=== PATIENT | male | born 1930 | race Hispanic/Latino ===

== ENCOUNTER 2017-02-16 14:47 | Inpatient (IN) | payer OTHER, BC ==
[2017-02-16 15:35] VITALS: BMI 33.5
[2017-02-16] MEDS ORDERED: Ergocalciferol 50,000 Intl Units Cap PO SCH (16:00)
[2017-02-16] MEDS: Tiotropium 18 mcg Cap For Inhalation INH SCH (17:25)
[2017-02-16] MEDS ORDERED: Insulin Regular 100 units/ml SC SCH (22:00)
--- NOTE | 2017-02-17 01:12 | CON ---
DATE: ENDOCRINOLOGY CONSULT LOCATION: Room 709, [facility]. HISTORY OF PRESENT ILLNESS: This is an 86-year-old male with a recent admission for congestive heart failure and exacerbation of COPD, now being referred for endocrine evaluation and management. He has known history of hypothyroidism, currently on levothyroxine at 175 mcg daily. 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 Also history of recent admission for congestive heart failure with elevated proBNP levels as noted, history of hypothyroidism and has been controlled on levothyroxine at 175 mcg daily, history of hypertensive cardiovascular disease and dyslipidemia, history of chronic morbid obesity, history of type 2 diabetes, but is not on any kind of hypoglycemic therapy at this time, history of diabetic retinopathy, polyneuropathy and nephropathy as noted, underlying chronic kidney disease. His latest hemoglobin A1c was 6.6%. FAMILY HISTORY: Positive for diabetes and hypertension. SOCIAL HISTORY: The patient has a supportive family; has prior history of nicotine dependence but quit some years ago. REVIEW OF SYSTEMS: Admits to generalized body weakness with easy fatigability and tiredness and suboptimal energy level. Also admits to dizziness and lightheadedness, worse on the day of admission, also admits to precordial chest pain with progressive shortness of breath, initially on exertion and then at rest, with paroxysmal nocturnal dyspnea. His oral intake is variable with occasional dyspepsia and habitual constipation. He also admits to occasional nocturia. PHYSICAL EXAMINATION GENERAL: He is an obese male in no apparent distress. VITAL SIGNS: Blood pressure of 140/80, pulse of 70 beats per minute regular, temperature 99, respirations 20, height is 5 feet 10 inches, weight is 234 pounds. HEENT: Head normocephalic. Eyes anicteric with pink conjunctivae. Funduscopy was not possible at this time. Ears, nose and throat otherwise normal. NECK: Supple. Thyroid gland is normal in size. No carotid bruits or any cervical adenopathy. CARDIOPULMONARY: Adynamic precordium. S1, S2 is rapid and regular. LUNGS: Clear to auscultation. ABDOMEN: Obese, soft with positive bowel sounds. EXTREMITIES: No peripheral edema. Pulses are +2 bilaterally. LABORATORY DATA: His chemistries showed a BUN of 37, sodium 140, potassium 4.1, chloride 104, CO2 31, glucose 123 and creatinine 2.1. His hemoglobin A1c is 6.6%. The proBNP was 15,500. TSH done was 2.17. ASSESSMENT: This is an 86-year-old male with a known history of type 2 diabetes, previously on steroid therapy with expected hyperglycemic accelerations and is now being followed closely for metabolic management and has now been referred for diabetic and thyroid evaluation as noted. He has significant history of recent congestive heart failure with exacerbation of chronic obstructive pulmonary disease as noted. He also has diabetic microvascular complications of retinopathy, polyneuropathy and nephropathy with underlying chronic kidney disease. PLAN: Plan of management was discussed with the patient and staff. We will order a low-dose correction scale using Humalog insulin as ordered. We will observe his glycemic fluctuations and depending on his glycemic accelerations, we will start him on the low-dose oral hypoglycemic therapy and/or of a combination of basal insulin with oral hypoglycemic drug therapy as indicated. We will obtain thyroid function studies and adjust his levothyroxine dose accordingly. We will obtain serial chemistries and supplement accordingly needed. Lenore Dennis MD
[2017-02-17 06:05] LABS: HEMATOCRIT 34.7 % (35.0-51.0); MEAN CELL VOLUME 87.4 fl (80.0-94.0); MEAN CORPUSCULAR HEMOGLOBIN 27.6 pg (27.0-31.0); MEAN CORPUSCULAR HGB CONC 31.6 g/dL (33.0-37.0); RED CELL DISTRIBUTION WIDTH 15.8 % (11.5-14.5)
[2017-02-17] MEDS ORDERED: Levothyroxine 175 MCG TAB PO SCH (06:30)
[2017-02-17] MEDS: Insulin Regular 100 units/ml SC SCH ×4 (06:33→21:56)
[2017-02-17 06:44] LABS: BILIRUBIN,TOTAL 0.9 mg/dl (0.2-1.3); CALCIUM 7.8 mg/dL (8.4-10.2); POTASSIUM 4.8 MMOL/L (3.6-5.0); TOTAL PROTEIN 6.1 G/DL (6.3-8.2)
[2017-02-17 06:47] LABS: T4 9.82 ug/dl (5.5-11.0)
[2017-02-17 07:00] LABS: THYROID STIMULATING HORMONE 0.86 mIU/ML (0.46-4.68)
--- NOTE | 2017-02-17 07:10 | CP.PCM.HP ---
History of Present Illness - History of Present Illness History of Present Illness: Patient presented in ER with SOB, dyspenea, elevation of D-Dimer, edema, possible pneumonia (abnormal CXR), severe COPD requiring constant administration of O2, renal failure, DM1, DM nephropathy, depression, no compliance with meds. He looks acute and chronically ill, Severe debility. Patient transfer to snf to continue present rx and adjust meds and PT. Present on Admission - Present on Admission Any Indicators Present on Admission: No Review of Systems - Constitutional Constitutional: As Per HPI - EENT Eyes: As Per HPI - Cardiovascular Cardiovascular: As Per HPI - Respiratory Respiratory: As Per HPI - Gastrointestinal Gastrointestinal: As Per HPI - Musculoskeletal Musculoskeletal: As Per HPI - Integumentary Integumentary: As Per HPI - Neurological Neurological: As Per HPI - Psychiatric Psychiatric: As Per HPI Past Patient History - Infectious Disease Hx of Infectious Diseases: None - Past Medical History & Family History Past Medical History?: Yes - Past Social History Smoking Status: Former Smoker - CARDIAC Hx Congestive Heart Failure: Yes Hx Hypercholesterolemia: Yes Hx Hypertension: Yes - PULMONARY Hx Chronic Obstructive Pulmonary Disease (COPD): No - NEUROLOGICAL Hx Neurological Disorder: No HX Cerebrovascular Accident: No - HEENT Hx HEENT Problems: Yes Hx Deafness: Yes - RENAL Hx Chronic Kidney Disease: Yes Hx Kidney Stones: Yes - ENDOCRINE/METABOLIC Hx Hypothyroidism: Yes - HEMATOLOGICAL/ONCOLOGICAL Hx AIDS: No Hx Anemia: Yes Hx Human Immunodeficiency Virus (HIV): No - INTEGUMENTARY Hx Dermatological Problems: No - MUSCULOSKELETAL/RHEUMATOLOGICAL Hx Arthritis: Yes Hx Falls: Yes (15 yrs ago left leg surgery) - GASTROINTESTINAL Hx Gastrointestinal Disorders: No - GENITOURINARY/GYNECOLOGICAL Hx Genitourinary Disorders: No - PSYCHIATRIC Hx Anxiety: Yes Hx Depression: Yes Hx Substance Use: No - SURGICAL HISTORY Hx Cholecystectomy: Yes Hx Coronary Artery Bypass Graft: Yes Hx Coronary Stent: Yes (X2) - ANESTHESIA Hx Anesthesia: Yes Hx Anesthesia Reactions: No Hx Malignant Hyperthermia: No Meds Allergies/Adverse Reactions: Allergies Allergy/AdvReac Type Severity Reaction Status Date / Time atorvastatin AdvReac DIZZINESS Verified 02/16/17 15:27 Penicillins AdvReac RASH Verified 02/16/17 15:27 Physical Exam - Constitutional Appears: Non-toxic - Head Exam Head Exam: ATRAUMATIC, NORMAL INSPECTION, NORMOCEPHALIC - ENT Exam ENT Exam: Mucous Membranes Dry - Neck Exam Neck exam: Positive for: Full Rom - Respiratory Exam Respiratory Exam: Decreased Breath Sounds, Prolonged Expiratory Phase - Cardiovascular Exam Cardiovascular Exam: REGULAR RHYTHM, +S1, +S2 - GI/Abdominal Exam GI & Abdominal Exam: Normal Bowel Sounds, Soft - Neurological Exam Neurological exam: Alert, CN II-XII Intact, Oriented x3 - Psychiatric Exam Psychiatric exam: Normal Mood - Skin Skin Exam: Dry Results - Vital Signs Recent Vital Signs: Last Vital Signs Temp 98.6 F 02/16/17 21:56 Pulse 62 02/16/17 21:56 Resp 20 02/16/17 21:56 BP 131/55 L 02/16/17 21:56 Pulse Ox 100 02/16/17 21:56 - Labs Result Diagrams: 02/17/17 05:45 02/17/17 05:45 Labs: Laboratory Results - last 24 hr 02/16/17 02/16/17 02/17/17 16:10 20:27 05:45 WBC 7.0 D RBC 3.97 L Hgb 11.0 L Hct 34.7 L MCV 87.4 D MCH 27.6 MCHC 31.6 L RDW 15.8 H Plt Count 105 L D Sodium Potassium Chloride Carbon Dioxide Anion Gap BUN Creatinine Est GFR ( Amer) Est GFR (Non-Af Amer) POC Glucose (mg/dL) 106 134 H Random Glucose Calcium Total Bilirubin AST ALT Alkaline Phosphatase NT-Pro-B Natriuret Pep Total Protein Albumin Globulin Albumin/Globulin Ratio Free T4 Thyroxine (T4) TSH 3rd Generation 02/17/17 02/17/17 02/17/17 05:45 05:45 05:45 WBC RBC Hgb Hct MCV MCH MCHC RDW Plt Count Sodium 141 Potassium 4.8 Chloride 106 Carbon Dioxide 28 Anion Gap 12 BUN 36 H Creatinine 2.4 H Est GFR ( Amer) 31 Est GFR (Non-Af Amer) 26 POC Glucose (mg/dL) Random Glucose 130 H Calcium 7.8 L Total Bilirubin 0.9 AST 20 ALT 32 Alkaline Phosphatase 73 NT-Pro-B Natriuret Pep 29624 H Total Protein 6.1 L Albumin 3.0 L D Globulin 3.1 Albumin/Globulin Ratio 1.0 Free T4 1.63 Thyroxine (T4) 9.82 TSH 3rd Generation 0.86 02/17/17 05:47 WBC RBC Hgb Hct MCV MCH MCHC RDW Plt Count Sodium Potassium Chloride Carbon Dioxide Anion Gap BUN Creatinine Est GFR ( Amer) Est GFR (Non-Af Amer) POC Glucose (mg/dL) 140 H Random Glucose Calcium Total Bilirubin AST ALT Alkaline Phosphatase NT-Pro-B Natriuret Pep Total Protein Albumin Globulin Albumin/Globulin Ratio Free T4 Thyroxine (T4) TSH 3rd Generation Assessment & Plan (1) CHF (congestive heart failure), NYHA class III Status: Chronic (2) Dyspnea Status: Chronic (3) Leg edema, right Status: Chronic (4) Muscular deconditioning Status: Chronic (5) Physical deconditioning Status: Chronic (6) Aortic aneurysm Status: Chronic (7) Coronary artery disease Status: Chronic (8) Debility Status: Chronic (9) Depression Status: Chronic (10) Diabetes 1.5, managed as type 2 Status: Chronic (11) Hypothyroidism Status: Chronic (12) 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
[2017-02-17] MEDS ORDERED: Enoxaparin 30 mg Syringe SC SCH (09:00)
[2017-02-17] MEDS ORDERED: Patient's Own Med (Moxifloxacin Iv 400mg/250ml Ns [Avelox Iv 400mg/250ml Ns] 400 MG) IV SCH (09:00)
[2017-02-17] MEDS: Metoprolol Succinate 50 mg XL Tab PO SCH (09:25)
[2017-02-17] MEDS: Potassium Chloride 20 mEq ER Tab PO SCH (09:25)
[2017-02-17] MEDS: Enoxaparin 30 mg Syringe SC SCH (09:29)
--- NOTE | 2017-02-17 16:20 | CP.PCM.CON ---
History of Present Illness - History of Present Illness History of Present Illness: Consultation for evaluation and treatment : hx of CHF / CAD / AAA HPI: Past Patient History - Infectious Disease Hx of Infectious Diseases: None - Past Medical History & Family History Past Medical History?: Yes - Past Social History Smoking Status: Former Smoker - CARDIAC Hx Cardiac Disorders: Yes Hx Congestive Heart Failure: Yes Hx Hypercholesterolemia: Yes Hx Hypertension: Yes - PULMONARY Hx Chronic Obstructive Pulmonary Disease (COPD): No - NEUROLOGICAL Hx Neurological Disorder: No HX Cerebrovascular Accident: No - HEENT Hx HEENT Problems: Yes Hx Deafness: Yes - RENAL Hx Chronic Kidney Disease: Yes Hx Kidney Stones: Yes - ENDOCRINE/METABOLIC Hx Diabetes Mellitus Type 2: Yes - HEMATOLOGICAL/ONCOLOGICAL Hx AIDS: No Hx Anemia: Yes Hx Human Immunodeficiency Virus (HIV): No - INTEGUMENTARY Hx Dermatological Problems: No - MUSCULOSKELETAL/RHEUMATOLOGICAL Hx Arthritis: Yes Hx Falls: Yes (15 yrs ago left leg surgery) - GASTROINTESTINAL Hx Gastrointestinal Disorders: No - GENITOURINARY/GYNECOLOGICAL Hx Genitourinary Disorders: No - PSYCHIATRIC Hx Anxiety: Yes Hx Depression: Yes Hx Substance Use: No - SURGICAL HISTORY Hx Cholecystectomy: Yes Hx Coronary Artery Bypass Graft: Yes Hx Coronary Stent: Yes (X2) - ANESTHESIA Hx Anesthesia: Yes Hx Anesthesia Reactions: No Hx Malignant Hyperthermia: No Meds Allergies/Adverse Reactions: Allergies Allergy/AdvReac Type Severity Reaction Status Date / Time atorvastatin AdvReac DIZZINESS Verified 02/16/17 15:27 Penicillins AdvReac RASH Verified 02/16/17 15:27 - Medications Medications: Current Medications Aspirin (Ecotrin) 81 mg PO DAILY [facility] Last Admin: 02/17/17 09:25 Dose: 81 mg Atorvastatin Calcium (Lipitor) 20 mg PO HS [facility] Last Admin: 02/16/17 21:41 Dose: 20 mg Docusate Sodium (Colace) 100 mg PO BID [facility] Enoxaparin Sodium (Lovenox) 30 mg SC DAILY [facility] PRN Reason: Protocol Last Admin: 02/17/17 09:29 Dose: 30 mg Ergocalciferol (Drisdol 50,000 Intl Units Cap) 1 cap PO QWK [facility] Escitalopram Oxalate (Lexapro) 10 mg PO DAILY [facility] Last Admin: 02/17/17 09:24 Dose: 10 mg Folic Acid (Folic Acid) 1 mg PO DAILY [facility] Last Admin: 02/17/17 09:25 Dose: 1 mg Furosemide (Lasix) 20 mg IVP DAILY [facility] Last Admin: 02/17/17 09:26 Dose: 20 mg Insulin Human Regular (Humulin R) 0 units SC [facility] PRN Reason: Protocol Last Admin: 02/17/17 12:04 Dose: Not Given Levothyroxine Sodium (Synthroid) 175 mcg PO DAILY@0630 [facility] Last Admin: 02/17/17 06:10 Dose: 175 mcg Lisinopril (Zestril) 5 mg PO DAILY [facility] Last Admin: 02/17/17 09:25 Dose: 5 mg Metoprolol Succinate (Toprol Xl) 50 mg PO DAILY [facility] Last Admin: 02/17/17 09:25 Dose: 50 mg Moxifloxacin HCl (Avelox) 400 mg PO DAILY [facility] Last Admin: 02/17/17 09:25 Dose: 400 mg Mupirocin (Bactroban Ointment) 1 applic TOP Q12 [facility] Last Admin: 02/17/17 09:26 Dose: 1 applic Potassium Chloride (K-Dur 20 Meq Er Tab) 20 meq PO DAILY [facility] Last Admin: 02/17/17 09:25 Dose: 20 meq Spironolactone (Aldactone) 25 mg PO DAILY [facility] Last Admin: 02/17/17 09:25 Dose: 25 mg Tiotropium Alta (Spiriva) 18 mcg INH DAILY@1600 [facility] Last Admin: 02/16/17 17:25 Dose: Not Given Results - Vital Signs Recent Vital Signs: Last Vital Signs Temp 97.2 F L 02/17/17 16:12 Pulse 97 H 02/17/17 16:12 Resp 20 02/17/17 16:12 BP 106/57 L 02/17/17 16:12 Pulse Ox 100 02/17/17 16:12 - Labs Result Diagrams: 02/17/17 05:45 02/17/17 05:45 Labs: Laboratory Results - last 24 hr 02/16/17 02/16/17 02/17/17 16:10 20:27 05:45 WBC 7.0 D RBC 3.97 L Hgb 11.0 L Hct 34.7 L MCV 87.4 D MCH 27.6 MCHC 31.6 L RDW 15.8 H Plt Count 105 L D Sodium Potassium Chloride Carbon Dioxide Anion Gap BUN Creatinine Est GFR ( Amer) Est GFR (Non-Af Amer) POC Glucose (mg/dL) 106 134 H Random Glucose Hemoglobin A1c Calcium Total Bilirubin AST ALT Alkaline Phosphatase NT-Pro-B Natriuret Pep Total Protein Albumin Globulin Albumin/Globulin Ratio Free T4 Thyroxine (T4) TSH 3rd Generation 02/17/17 02/17/17 02/17/17 05:45 05:45 05:45 WBC RBC Hgb Hct MCV MCH MCHC RDW Plt Count Sodium 141 Potassium 4.8 Chloride 106 Carbon Dioxide 28 Anion Gap 12 BUN 36 H Creatinine 2.4 H Est GFR ( Amer) 31 Est GFR (Non-Af Amer) 26 POC Glucose (mg/dL) Random Glucose 130 H Hemoglobin A1c 6.8 H Calcium 7.8 L Total Bilirubin 0.9 AST 20 ALT 32 Alkaline Phosphatase 73 NT-Pro-B Natriuret Pep Total Protein 6.1 L Albumin 3.0 L D Globulin 3.1 Albumin/Globulin Ratio 1.0 Free T4 1.63 Thyroxine (T4) 9.82 TSH 3rd Generation 0.86 02/17/17 02/17/17 02/17/17 05:45 05:47 10:59 WBC RBC Hgb Hct MCV MCH MCHC RDW Plt Count Sodium Potassium Chloride Carbon Dioxide Anion Gap BUN Creatinine Est GFR ( Amer) Est GFR (Non-Af Amer) POC Glucose (mg/dL) 140 H 227 H Random Glucose Hemoglobin A1c Calcium Total Bilirubin AST ALT Alkaline Phosphatase NT-Pro-B Natriuret Pep 85647 H Total Protein Albumin Globulin Albumin/Globulin Ratio Free T4 Thyroxine (T4) TSH 3rd Generation 02/17/17 15:54 WBC RBC Hgb Hct MCV MCH MCHC RDW Plt Count Sodium Potassium Chloride Carbon Dioxide Anion Gap BUN Creatinine Est GFR ( Amer) Est GFR (Non-Af Amer) POC Glucose (mg/dL) 138 H Random Glucose Hemoglobin A1c Calcium Total Bilirubin AST ALT Alkaline Phosphatase NT-Pro-B Natriuret Pep Total Protein Albumin Globulin Albumin/Globulin Ratio Free T4 Thyroxine (T4) TSH 3rd Generation Assessment & Plan (1) CHF (congestive heart failure) Status: Acute (2) Elevated d-dimer Status: Acute
[2017-02-17] MEDS: Tiotropium 18 mcg Cap For Inhalation INH SCH (16:54)
--- NOTE | 2017-02-17 18:20 | CARD ---
APPROVED REPORT EKG Measurement Heart [id number] <Conclusion> Atrial-sensed ventricular-paced rhythm Abnormal ECG
--- NOTE | 2017-02-17 21:52 | CP.PCM.CON ---
History of Present Illness - History of Present Illness History of Present Illness: REASONS FOR CONSULT : CKD STAGE 3 CPMPLICATIONS OF CKD STAGE 3 PT IS WELL KNOWN TO ME FROM PREVIOUS ADMISSIONS WELL FROM OFFICE VISITS PT HAS MULTIPLE MEDICAL PROBLEMS AND FREQUENT ADMISSIONS WAS ADMITTED FOR EXACERBATION OF COPD / PNEUMONIA .. WELL CHF ALL PREVIOUS EMR REVIEWED .. LABS AND MEDS WERE ALL REVIEWED Patient presented in ER with SOB, dyspenea, elevation of D-Dimer, edema, possible pneumonia (abnormal CXR), severe COPD requiring constant administration of O2, renal failure, DM1, DM nephropathy, depression, no compliance with meds. He looks acute and chronically ill, Severe debility. Patient transfer to snf to continue present rx and adjust meds and PT. Past Patient History - Infectious Disease Hx of Infectious Diseases: None - Past Medical History & Family History Past Medical History?: Yes - Past Social History Smoking Status: Former Smoker - CARDIAC Hx Cardiac Disorders: Yes Hx Congestive Heart Failure: Yes Hx Hypercholesterolemia: Yes Hx Hypertension: Yes - PULMONARY Hx Chronic Obstructive Pulmonary Disease (COPD): No - NEUROLOGICAL Hx Neurological Disorder: No HX Cerebrovascular Accident: No - HEENT Hx HEENT Problems: Yes Hx Deafness: Yes - RENAL Hx Chronic Kidney Disease: Yes Hx Kidney Stones: Yes - ENDOCRINE/METABOLIC Hx Diabetes Mellitus Type 2: Yes - HEMATOLOGICAL/ONCOLOGICAL Hx AIDS: No Hx Anemia: Yes Hx Human Immunodeficiency Virus (HIV): No - INTEGUMENTARY Hx Dermatological Problems: No - MUSCULOSKELETAL/RHEUMATOLOGICAL Hx Arthritis: Yes Hx Falls: Yes (15 yrs ago left leg surgery) - GASTROINTESTINAL Hx Gastrointestinal Disorders: No - GENITOURINARY/GYNECOLOGICAL Hx Genitourinary Disorders: No - PSYCHIATRIC Hx Anxiety: Yes Hx Depression: Yes Hx Substance Use: No - SURGICAL HISTORY Hx Cholecystectomy: Yes Hx Coronary Artery Bypass Graft: Yes Hx Coronary Stent: Yes (X2) - ANESTHESIA Hx Anesthesia: Yes Hx Anesthesia Reactions: No Hx Malignant Hyperthermia: No Meds Allergies/Adverse Reactions: Allergies Allergy/AdvReac Type Severity Reaction Status Date / Time atorvastatin AdvReac DIZZINESS Verified 02/16/17 15:27 Penicillins AdvReac RASH Verified 02/16/17 15:27 - Medications Medications: Current Medications Aspirin (Ecotrin) 81 mg PO DAILY [facility] Last Admin: 02/17/17 09:25 Dose: 81 mg Atorvastatin Calcium (Lipitor) 20 mg PO HS [facility] Last Admin: 02/16/17 21:41 Dose: 20 mg Docusate Sodium (Colace) 100 mg PO BID [facility] Last Admin: 02/17/17 16:54 Dose: 100 mg Enoxaparin Sodium (Lovenox) 30 mg SC DAILY [facility] PRN Reason: Protocol Last Admin: 02/17/17 09:29 Dose: 30 mg Ergocalciferol (Drisdol 50,000 Intl Units Cap) 1 cap PO QWK [facility] Escitalopram Oxalate (Lexapro) 10 mg PO DAILY [facility] Last Admin: 02/17/17 09:24 Dose: 10 mg Folic Acid (Folic Acid) 1 mg PO DAILY [facility] Last Admin: 02/17/17 09:25 Dose: 1 mg Furosemide (Lasix) 20 mg IVP DAILY [facility] Last Admin: 02/17/17 09:26 Dose: 20 mg Insulin Human Regular (Humulin R) 0 units SC ACHS [facility] PRN Reason: Protocol Last Admin: 02/17/17 16:53 Dose: Not Given Levothyroxine Sodium (Synthroid) 175 mcg PO DAILY@0630 [facility] Last Admin: 02/17/17 06:10 Dose: 175 mcg Lisinopril (Zestril) 5 mg PO DAILY [facility] Last Admin: 02/17/17 09:25 Dose: 5 mg Metoprolol Succinate (Toprol Xl) 50 mg PO DAILY [facility] Last Admin: 02/17/17 09:25 Dose: 50 mg Moxifloxacin HCl (Avelox) 400 mg PO DAILY [facility] Last Admin: 02/17/17 09:25 Dose: 400 mg Mupirocin (Bactroban Ointment) 1 applic TOP Q12 [facility] Last Admin: 02/17/17 09:26 Dose: 1 applic Potassium Chloride (K-Dur 20 Meq Er Tab) 20 meq PO DAILY [facility] Last Admin: 02/17/17 09:25 Dose: 20 meq Spironolactone (Aldactone) 25 mg PO DAILY [facility] Last Admin: 02/17/17 09:25 Dose: 25 mg Tiotropium Erwin (Spiriva) 18 mcg INH DAILY@1600 [facility] Last Admin: 02/17/17 16:54 Dose: 18 mcg Results - Vital Signs Recent Vital Signs: Last Vital Signs Temp 97.0 F L 02/17/17 20:03 Pulse 96 H 02/17/17 20:03 Resp 20 02/17/17 20:03 BP 119/67 02/17/17 20:03 Pulse Ox 100 02/17/17 20:03 - Labs Result Diagrams: 02/17/17 05:45 02/17/17 05:45 Labs: Laboratory Results - last 24 hr 02/16/17 02/17/17 02/17/17 20:27 05:45 05:45 WBC 7.0 D RBC 3.97 L Hgb 11.0 L Hct 34.7 L MCV 87.4 D MCH 27.6 MCHC 31.6 L RDW 15.8 H Plt Count 105 L D Sodium 141 Potassium 4.8 Chloride 106 Carbon Dioxide 28 Anion Gap 12 BUN 36 H Creatinine 2.4 H Est GFR ( Amer) 31 Est GFR (Non-Af Amer) 26 POC Glucose (mg/dL) 134 H Random Glucose 130 H Hemoglobin A1c Calcium 7.8 L Total Bilirubin 0.9 AST 20 ALT 32 Alkaline Phosphatase 73 NT-Pro-B Natriuret Pep Total Protein 6.1 L Albumin 3.0 L D Globulin 3.1 Albumin/Globulin Ratio 1.0 Free T4 Thyroxine (T4) 9.82 TSH 3rd Generation 0.86 02/17/17 02/17/17 02/17/17 05:45 05:45 05:45 WBC RBC Hgb Hct MCV MCH MCHC RDW Plt Count Sodium Potassium Chloride Carbon Dioxide Anion Gap BUN Creatinine Est GFR ( Amer) Est GFR (Non-Af Amer) POC Glucose (mg/dL) Random Glucose Hemoglobin A1c 6.8 H Calcium Total Bilirubin AST ALT Alkaline Phosphatase NT-Pro-B Natriuret Pep 43105 H Total Protein Albumin Globulin Albumin/Globulin Ratio Free T4 1.63 Thyroxine (T4) TSH 3rd Generation 02/17/17 02/17/17 02/17/17 05:47 10:59 15:54 WBC RBC Hgb Hct MCV MCH MCHC RDW Plt Count Sodium Potassium Chloride Carbon Dioxide Anion Gap BUN Creatinine Est GFR ( Amer) Est GFR (Non-Af Amer) POC Glucose (mg/dL) 140 H 227 H 138 H Random Glucose Hemoglobin A1c Calcium Total Bilirubin AST ALT Alkaline Phosphatase NT-Pro-B Natriuret Pep Total Protein Albumin Globulin Albumin/Globulin Ratio Free T4 Thyroxine (T4) TSH 3rd Generation 02/17/17 20:20 WBC RBC Hgb Hct MCV MCH MCHC RDW Plt Count Sodium Potassium Chloride Carbon Dioxide Anion Gap BUN Creatinine Est GFR ( Amer) Est GFR (Non-Af Amer) POC Glucose (mg/dL) 221 H Random Glucose Hemoglobin A1c Calcium Total Bilirubin AST ALT Alkaline Phosphatase NT-Pro-B Natriuret Pep Total Protein Albumin Globulin Albumin/Globulin Ratio Free T4 Thyroxine (T4) TSH 3rd Generation
--- NOTE | 2017-02-17 23:41 | PN ---
DATE: ENDOCRINOLOGY FOLLOWUP NOTE LOCATION: Room 709. SUBJECTIVE: This is an 86-year-old male with recent admission for congestive heart failure and since then improved clinically and hemodynamically as noted thereof. He has ongoing physical and occupational therapy for recent deconditioning as noted. He has also been followed closely for metabolic management because of known history of type 2 diabetes from the prior admission. His latest chemistry showed a BUN of 36, sodium 141, potassium 4.8, chloride 106, CO2 of 28, glucose 130 and creatinine 2.4. The latest hemoglobin A1c is 6.8% and the glucose values have ranged from 134-140 mg/dL today as noted. His repeat thyroid study showed a T4 of 9.82 with a TSH of 0.86 with a free T4 of 1.63. So at this time, we will actually lower his levothyroxine medication to 150 mcg once daily as ordered. We will hold off any kind of oral hypoglycemic drug therapy for now and observe his glycemic fluctuations and start him on low-dose oral medications as indicated. We will hold off also any kind of basal therapies for now. We will obtain serial chemistries and supplement accordingly as needed. We will follow. Lenore Dennis MD
[2017-02-18] MEDS: Levothyroxine 125 MCG TAB PO SCH (06:31)
[2017-02-18] MEDS: Insulin Regular 100 units/ml SC SCH ×4 (06:33→21:47)
[2017-02-18 07:07] LABS: POTASSIUM 5.3 MMOL/L (3.6-5.0)
--- NOTE | 2017-02-18 08:21 | RAD ---
HISTORY: md COMPARISON: Chest radiographs 09/22/2015. TECHNIQUE: Chest PA and lateral FINDINGS: LUNGS: Clear patchy airspace disease in the right base with none on the left. PLEURA: No significant pleural effusion identified. No pneumothorax apparent. CARDIOVASCULAR: Cardiac silhouette appears stable remaining normal size overall for sternotomy wires again seen with interval implanted pacemaker/ defibrillator in place by an apparent left subclavian approach with leads extending into the heart. OSSEOUS STRUCTURES: No significant abnormalities. VISUALIZED UPPER ABDOMEN: Normal. OTHER FINDINGS: None. IMPRESSION: Limited airspace disease centered at the right base with none on the left. Interval pacemaker/ defibrillator in place.
[2017-02-18] MEDS: Enoxaparin 30 mg Syringe SC SCH (08:41)
[2017-02-18] MEDS: Metoprolol Succinate 50 mg XL Tab PO SCH (08:42)
[2017-02-18] MEDS: Potassium Chloride 20 mEq ER Tab PO SCH (08:47)
--- NOTE | 2017-02-18 15:06 | CARD ---
APPROVED REPORT EKG Measurement Heart [id number] <Conclusion> Atrial-sensed ventricular-paced rhythm Abnormal ECG
[2017-02-18] MEDS: Tiotropium 18 mcg Cap For Inhalation INH SCH (16:26)
--- NOTE | 2017-02-18 16:29 | PN ---
DATE: ENDOCRINOLOGY FOLLOWUP NOTE LOCATION: In the room 709 TCU. This is an 86-year-old male with recent admission for congestive heart failure and has since then improved clinically and hemodynamically as noted thereof. He also had recent glycemic accelerations and is now being followed closely for metabolic management. His glycemic levels are fluctuating, but much improved at this time. The latest glucose levels have ranged from 139-163 mg/dL. His latest chemistry showed a BUN of 41, sodium 138, potassium 5.3, chloride 106, CO2 of 32, glucose 141, and creatinine 2.9. So at this time, we will continue the very low dose oral hypoglycemic drug therapy to allow for dose equilibration and keep him on the glipizide given as 2.5 mg b.i.d. before meals as ordered. We will titrate incremental as indicated to optimize metabolic control. We will obtain serial chemistries and supplement accordingly as needed. Moreover, we will also continue the modified and much lower levothyroxine medication as given. His latest thyroid study showed a TSH of 0.86 with a total T4 of 9.82 and a free T4 of 1.63. So at this time, we will continue the modified and lower dosing of the Synthroid given as 125 mcg p.o. once daily before breakfast as ordered. We will titrate incremental as indicated to optimize metabolic control. We will follow. Lenore Dennis MD
[2017-02-19] MEDS: Levothyroxine 125 MCG TAB PO SCH (06:37)
[2017-02-19] MEDS: Insulin Regular 100 units/ml SC SCH ×4 (06:38→21:32)
[2017-02-19] MEDS: Potassium Chloride 20 mEq ER Tab PO SCH (09:37)
[2017-02-19] MEDS: Metoprolol Succinate 50 mg XL Tab PO SCH (09:42)
[2017-02-19] MEDS: Enoxaparin 30 mg Syringe SC SCH (09:48)
--- NOTE | 2017-02-19 15:18 | PN ---
DATE: ENDOCRINOLOGY FOLLOWUP NOTE LOCATION: Room 709. SUBJECTIVE: This is an 86-year-old male with recent congestive heart failure and currently being followed closely for metabolic management. His glycemic levels are fluctuating but improved. His oral intake, however, is quite variable as per the nursing staff. The latest chemistry showed a BUN of 41, sodium 138, potassium 5.3, chloride 106, CO2 of 32, glucose 141, and creatinine 2.9. His glucose levels today have ranged from 85-107 and 110 mg/dL. He also is clinically and biochemically euthyroid at this time and the latest thyroid study showed a T4 of 9.82 with a TSH of 0.86 and a free T4 of 1.63. So, at this time, we will continue the modified and much lower levothyroxine replacement therapy given as 125 mcg daily as ordered. We will actually discontinue the glipizide and switch him over to a short acting oral hypoglycemic therapy, especially in the light of progressive renal insufficiency and switch him over to Prandin given as 1 mg p.o. t.i.d. before meals as ordered. We will titrate incremental as indicated to optimize metabolic control. We will obtain serial chemistries and supplement accordingly as needed. We will follow. Lenore Dennis MD
[2017-02-19] MEDS: Tiotropium 18 mcg Cap For Inhalation INH SCH (17:25)
[2017-02-20] MEDS: Levothyroxine 125 MCG TAB PO SCH (06:10)
[2017-02-20] MEDS: Insulin Regular 100 units/ml SC SCH ×4 (06:38→22:12)
[2017-02-20] MEDS: Metoprolol Succinate 50 mg XL Tab PO SCH (09:29)
[2017-02-20] MEDS: Potassium Chloride 20 mEq ER Tab PO SCH (09:33)
[2017-02-20] MEDS: Enoxaparin 30 mg Syringe SC SCH (09:33)
--- NOTE | 2017-02-20 16:23 | PN ---
ENDOCRINOLOGY FOLLOWUP NOTE LOCATION: In the room #702. This is an 86-year-old male with recent uncontrolled type 2 diabetes, presenting here with congestive heart failure and has since then improved clinically and hemodynamically as noted thereof. He is undergoing physical and occupational therapies for recent deconditioning as noted thereof. His glucose values have improved overnight and they have ranged from 139-146 and 152 mg/dL. The latest chemistry showed a BUN of 41, sodium 138, potassium 5.3, chloride 106, CO2 of 32, glucose 141, and creatinine 2.9. So at this time, we will continue the same low-dose oral hypoglycemic therapy to allow for dose equilibration and keep him on the Prandin given as 1 mg p.o. t.i.d. before meals as ordered. We will continue the very low dose correction scale using regular insulin as ordered. We will titrate incremental as indicated to optimize metabolic control. We will obtain serial chemistries and supplement accordingly as needed. We will follow. Lenore Dennis MD
[2017-02-20 17:25] VITALS: RESP 20
[2017-02-20] MEDS: Tiotropium 18 mcg Cap For Inhalation INH SCH (17:37)
--- NOTE | 2017-02-20 17:56 | CP.PCM.PN ---
Subjective - Date & Time of Evaluation Date of Evaluation: 02/20/17 Time of Evaluation: 15:00 - Subjective Subjective: SEEN ON RENAL F/U FEELS IMPROVED .. PARTICIPATING IN PT Objective - Vital Signs/Intake and Output Vital Signs (last 24 hours): Temp Pulse Resp BP Pulse Ox 97.1 F L 98 H 20 115/60 100 02/20/17 17:24 02/20/17 17:24 02/20/17 17:24 02/20/17 17:24 02/20/17 17:24 - Medications Medications: Current Medications Aspirin (Ecotrin) 81 mg PO DAILY [facility] Last Admin: 02/20/17 09:31 Dose: 81 mg Atorvastatin Calcium (Lipitor) 20 mg PO HS [facility] Last Admin: 02/19/17 21:32 Dose: 20 mg Docusate Sodium (Colace) 100 mg PO BID [facility] Last Admin: 02/20/17 17:37 Dose: 100 mg Enoxaparin Sodium (Lovenox) 30 mg SC DAILY [facility] PRN Reason: Protocol Ergocalciferol (Drisdol 50,000 Intl Units Cap) 1 cap PO QWK [facility] Escitalopram Oxalate (Lexapro) 10 mg PO DAILY [facility] Last Admin: 02/20/17 09:31 Dose: 10 mg Folic Acid (Folic Acid) 1 mg PO DAILY [facility] Last Admin: 02/20/17 09:29 Dose: 1 mg Furosemide (Lasix) 20 mg IVP DAILY [facility] Last Admin: 02/20/17 09:29 Dose: 20 mg Insulin Human Regular (Humulin R) 0 units SC ACHS [facility] PRN Reason: Protocol Last Admin: 02/20/17 17:30 Dose: Not Given Levothyroxine Sodium (Synthroid) 125 mcg PO DAILY@0630 [facility] Last Admin: 02/20/17 06:10 Dose: 125 mcg Lisinopril (Zestril) 5 mg PO DAILY [facility] Last Admin: 02/20/17 09:31 Dose: 5 mg Metoprolol Succinate (Toprol Xl) 50 mg PO DAILY [facility] Last Admin: 02/20/17 09:29 Dose: 50 mg Moxifloxacin HCl (Avelox) 400 mg PO DAILY [facility] Last Admin: 02/20/17 09:31 Dose: 400 mg Mupirocin (Bactroban Ointment) 1 applic TOP Q12 [facility] Last Admin: 02/20/17 09:29 Dose: 1 applic Potassium Chloride (K-Dur 20 Meq Er Tab) 20 meq PO DAILY [facility] Last Admin: 02/20/17 09:33 Dose: Not Given Repaglinide (Prandin) 1 mg PO TIDAC [facility] Last Admin: 02/20/17 17:38 Dose: 1 mg Spironolactone (Aldactone) 25 mg PO DAILY [facility] Last Admin: 02/20/17 09:32 Dose: 25 mg Tiotropium [place] (Spiriva) 18 mcg INH DAILY@1600 [facility] Last Admin: 02/20/17 17:37 Dose: 18 mcg - Labs Labs: 02/17/17 05:45 02/18/17 05:30 Assessment and Plan - Assessment and Plan (Free Text) Assessment: CKD STAGE 4 .. STABLE ANEMIA OF CKD .. H/H STABLE MMP P : C/O CURRENT MEDS C/O PRESENT MANAGEMENT
[2017-02-21] MEDS: Levothyroxine 125 MCG TAB PO SCH (06:10)
[2017-02-21] MEDS: Insulin Regular 100 units/ml SC SCH ×4 (07:08→21:08)
[2017-02-21] MEDS: Potassium Chloride 20 mEq ER Tab PO SCH (08:23)
[2017-02-21] MEDS: Metoprolol Succinate 50 mg XL Tab PO SCH (08:24)
[2017-02-21] MEDS: Enoxaparin 30 mg Syringe SC SCH (08:28)
--- NOTE | 2017-02-21 15:03 | PN ---
ENDOCRINOLOGY FOLLOWUP NOTE LOCATION: Room 709. SUBJECTIVE: This is an 86-year-old male with recent uncontrolled type 2 diabetes, presenting here with congestive heart failure and has since then improved clinically and hemodynamically as noted thereof. His oral intake is quite variable as per the staff and his glycemic levels have improved also as noted overnight. His glucose levels have ranged from 96-107 and 131 mg/dL. The latest chemistry showed a BUN of 41, sodium 138, potassium 5.3, chloride 106, CO2 of 32, glucose 141 and creatinine 2.9. There is also evidence of underlying chronic kidney disease with progressive renal insufficiency as noted thereof. So at this time, we will continue the low-dose correction scale using Humalog insulin as given. We will also continue the low-dose oral hypoglycemic therapy with Prandin given as 1 mg p.o. t.i.d. before meals as ordered. We will titrate incrementally as indicated to optimize metabolic control. We will follow and advise accordingly. Lenore Dennis MD
[2017-02-21] MEDS: Tiotropium 18 mcg Cap For Inhalation INH SCH (16:31)
--- NOTE | 2017-02-21 17:55 | CP.PCM.PN ---
Subjective - Date & Time of Evaluation Date of Evaluation: 02/21/17 Time of Evaluation: 15:00 - Subjective Subjective: SEEN ON RENAL F/U LUING FLAT IN BED FEELS MUCH IMPROVED DENIES SOB .. NO C/P RENAL FUNCTION STABLE K IS RUNNING HIGH .. WILL D/C K SUPPLEMENT Objective - Vital Signs/Intake and Output Vital Signs (last 24 hours): Temp Pulse Resp BP Pulse Ox 97.0 F L 98 H 20 116/50 L 97 02/21/17 16:38 02/21/17 16:38 02/21/17 16:38 02/21/17 09:39 02/21/17 16:38 - Medications Medications: Current Medications Aspirin (Ecotrin) 81 mg PO DAILY [facility] Last Admin: 02/21/17 08:23 Dose: 81 mg Atorvastatin Calcium (Lipitor) 20 mg PO HS [facility] Last Admin: 02/20/17 22:23 Dose: 20 mg Docusate Sodium (Colace) 100 mg PO BID [facility] Last Admin: 02/21/17 16:31 Dose: 100 mg Enoxaparin Sodium (Lovenox) 30 mg SC DAILY [facility] PRN Reason: Protocol Last Admin: 02/21/17 08:28 Dose: 30 mg Ergocalciferol (Drisdol 50,000 Intl Units Cap) 1 cap PO QWK [facility] Escitalopram Oxalate (Lexapro) 10 mg PO DAILY [facility] Last Admin: 02/21/17 08:23 Dose: 10 mg Folic Acid (Folic Acid) 1 mg PO DAILY [facility] Last Admin: 02/21/17 08:22 Dose: 1 mg Furosemide (Lasix) 20 mg IVP DAILY [facility] Last Admin: 02/21/17 09:39 Dose: 20 mg Insulin Human Regular (Humulin R) 0 units SC [facility] PRN Reason: Protocol Last Admin: 02/21/17 16:32 Dose: Not Given Levothyroxine Sodium (Synthroid) 125 mcg PO DAILY@0630 [facility] Last Admin: 02/21/17 06:10 Dose: 125 mcg Lisinopril (Zestril) 5 mg PO DAILY [facility] Last Admin: 02/21/17 08:23 Dose: 5 mg Metoprolol Succinate (Toprol Xl) 50 mg PO DAILY [facility] Last Admin: 02/21/17 08:24 Dose: 50 mg Moxifloxacin HCl (Avelox) 400 mg PO DAILY [facility] Last Admin: 02/21/17 08:29 Dose: 400 mg Mupirocin (Bactroban Ointment) 1 applic TOP Q12 [facility] Last Admin: 02/21/17 09:39 Dose: 1 applic Potassium Chloride (K-Dur 20 Meq Er Tab) 20 meq PO DAILY [facility] Last Admin: 02/21/17 08:23 Dose: 20 meq Repaglinide (Prandin) 1 mg PO TIDAC [facility] Last Admin: 02/21/17 16:31 Dose: 1 mg Spironolactone (Aldactone) 25 mg PO DAILY [facility] Last Admin: 02/21/17 08:24 Dose: 25 mg Tiotropium [place] (Spiriva) 18 mcg INH DAILY@1600 [facility] Last Admin: 02/21/17 16:31 Dose: 18 mcg - Labs Labs: 02/17/17 05:45 02/18/17 05:30
--- NOTE | 2017-02-21 18:22 | CP.PCM.PN ---
Subjective - Date & Time of Evaluation Date of Evaluation: 02/21/17 Time of Evaluation: 18:30 - Subjective Subjective: Patient seen and examined bedside. Felling better. Hemodynamically stable, afebrile. Still with some dyspnea while talking while on O2 via [place]. Participating with PT. wants to be discharged before [place]. Objective - Vital Signs/Intake and Output Vital Signs (last 24 hours): Temp Pulse Resp BP Pulse Ox 97.0 F L 98 H 20 116/50 L 97 02/21/17 16:38 02/21/17 16:38 02/21/17 16:38 02/21/17 09:39 02/21/17 16:38 - Medications Medications: Current Medications Aspirin (Ecotrin) 81 mg PO DAILY [facility] Last Admin: 02/21/17 08:23 Dose: 81 mg Atorvastatin Calcium (Lipitor) 20 mg PO HS [facility] Last Admin: 02/20/17 22:23 Dose: 20 mg Docusate Sodium (Colace) 100 mg PO BID [facility] Last Admin: 02/21/17 16:31 Dose: 100 mg Enoxaparin Sodium (Lovenox) 30 mg SC DAILY [facility] PRN Reason: Protocol Last Admin: 02/21/17 08:28 Dose: 30 mg Ergocalciferol (Drisdol 50,000 Intl Units Cap) 1 cap PO QWK [facility] Escitalopram Oxalate (Lexapro) 10 mg PO DAILY [facility] Last Admin: 02/21/17 08:23 Dose: 10 mg Folic Acid (Folic Acid) 1 mg PO DAILY [facility] Last Admin: 02/21/17 08:22 Dose: 1 mg Furosemide (Lasix) 20 mg IVP DAILY [facility] Last Admin: 02/21/17 09:39 Dose: 20 mg Insulin Human Regular (Humulin R) 0 units SC [facility] PRN Reason: Protocol Last Admin: 02/21/17 16:32 Dose: Not Given Levothyroxine Sodium (Synthroid) 125 mcg PO DAILY@0630 [facility] Last Admin: 02/21/17 06:10 Dose: 125 mcg Lisinopril (Zestril) 5 mg PO DAILY [facility] Last Admin: 02/21/17 08:23 Dose: 5 mg Metoprolol Succinate (Toprol Xl) 50 mg PO DAILY [facility] Last Admin: 02/21/17 08:24 Dose: 50 mg Moxifloxacin HCl (Avelox) 400 mg PO DAILY [facility] Last Admin: 02/21/17 08:29 Dose: 400 mg Mupirocin (Bactroban Ointment) 1 applic TOP Q12 [facility] Last Admin: 02/21/17 09:39 Dose: 1 applic Repaglinide (Prandin) 1 mg PO TIDAC [facility] Last Admin: 02/21/17 16:31 Dose: 1 mg Spironolactone (Aldactone) 25 mg PO DAILY [facility] Last Admin: 02/21/17 08:24 Dose: 25 mg Tiotropium [place] (Spiriva) 18 mcg INH DAILY@1600 [facility] Last Admin: 02/21/17 16:31 Dose: 18 mcg - Labs Labs: 02/17/17 05:45 02/18/17 05:30 - Constitutional Appears: Non-toxic, No Acute Distress, Chronically Ill - Head Exam Head Exam: ATRAUMATIC, NORMAL INSPECTION, NORMOCEPHALIC - Eye Exam Eye Exam: EOMI, Normal appearance, PERRL Pupil Exam: NORMAL ACCOMODATION - ENT Exam ENT Exam: Mucous Membranes Moist, Normal Exam - Neck Exam Neck Exam: Full ROM, Normal Inspection - Respiratory Exam Respiratory Exam: Clear to Ausculation Bilateral, Prolonged Expiratory Phase. absent: Rhonchi, Wheezes - Cardiovascular Exam Cardiovascular Exam: REGULAR RHYTHM, +S1, +S2. absent: JVD - GI/Abdominal Exam GI & Abdominal Exam: Soft, Normal Bowel Sounds. absent: Distended, Guarding, Tenderness, Rebound - Rectal Exam Rectal Exam: Deferred - Extremities Exam Extremities Exam: Normal Capillary Refill, Normal Inspection. absent: Pedal Edema - Back Exam Back Exam: NORMAL INSPECTION - Neurological Exam Neurological Exam: Alert, Awake, CN II-XII Intact, Oriented x3 - Psychiatric Exam Psychiatric exam: Normal Affect - Skin Skin Exam: Dry, Pallor, Warm Assessment and Plan - Assessment and Plan (Free Text) Assessment: 86 y/o male woith PMH COPD , CKD,DDM , nephropathy , CAD s/p bypass , s/p AICD pacement , history RLE DVT presented with with SOB, dyspenea, elevated of D-Dimer,LE. He was admitted and treated for COPD exacerbation , possible pneumonia (abnormal CXR) requiring constant administration of O2 and IV antibiotics . Patient has history of depression, no compliance with meds.Patient transfered to snf to continue present rx and PT. 1. Debility / Deconditioning Admitted to TCU PT/Ot consult 2.COPD exacerbation -improved Continue O2 via [place] Duonebs, Spiriva 3. Suspected Pneumonia on Avelox IV 4. CAD s/p CABG / dyslipidemia / AAA/ cardiology consulted Continue BP control On Statin , ASa,BB. ACEI 5. CKD stage III Nephro consulted stable 6.Hypertension on Lisinopril,metoprolol, Spironolactone 7. DM endo on cosult continue accuchecjkk, diabetic diert, insulin coverage Prandin 8. Hypothyroidism on synthroid 9. DVT prophylaxis Lovenox 10 . Depression on lexapro
[2017-02-22] MEDS: Levothyroxine 125 MCG TAB PO SCH (06:13)
[2017-02-22 07:07] LABS: BILIRUBIN,TOTAL 0.6 mg/dl (0.2-1.3); POTASSIUM 5.1 MMOL/L (3.6-5.0); TOTAL PROTEIN 5.9 G/DL (6.3-8.2)
[2017-02-22] MEDS: Insulin Regular 100 units/ml SC SCH ×4 (09:39→21:12)
[2017-02-22] MEDS: Enoxaparin 30 mg Syringe SC SCH (09:40)
[2017-02-22] MEDS: Metoprolol Succinate 50 mg XL Tab PO SCH (09:42)
[2017-02-22] MEDS: Tiotropium 18 mcg Cap For Inhalation INH SCH (16:19)
--- NOTE | 2017-02-22 22:23 | PN ---
DATE: LOCATION: Room 709 SUBJECTIVE: This is an 86-year-old male with recent uncontrolled type 2 insulin-requiring diabetes, now being followed closely for metabolic management. He also presented here with congestive heart failure on the background of underlying ischemic cardiomyopathy and has since then improved clinically and hemodynamically as noted thereof. His oral intake remains quite variable as per the staff and today's glucose values have ranged from 93-185 and 206 mg/dL. The latest chemistry showed a BUN of 58, sodium 142, potassium 5.1, chloride 110, CO2 of 26, glucose 113 and creatinine 2.9. So at this time, we will continue the same low-dose oral hypoglycemic drug therapy as given with Prandin at 1 mg p.o. t.i.d. before meals as ordered. We will titrate incremental as indicated to optimize metabolic control. We will also continue the modified dose of Synthroid given as 125 mcg daily as ordered. We will titrate incremental as indicated to optimize metabolic control. We will follow. Lenore Dennis MD
[2017-02-23] MEDS: Levothyroxine 125 MCG TAB PO SCH (07:01)
[2017-02-23] MEDS: Insulin Regular 100 units/ml SC SCH ×4 (08:14→22:09)
[2017-02-23] MEDS: Metoprolol Succinate 50 mg XL Tab PO SCH (08:16)
[2017-02-23] MEDS: Enoxaparin 30 mg Syringe SC SCH (08:17)
--- NOTE | 2017-02-23 13:28 | CP.PCM.PN ---
Subjective - Date & Time of Evaluation Date of Evaluation: 02/23/17 Time of Evaluation: 10:00 - Subjective Subjective: Patient relates that he is feeling much better and his shortness of breath has improved. He is participating well with physical therapy. Hemodynamically stable and afebrile. For likely discharge home tomorrow. Objective - Vital Signs/Intake and Output Vital Signs (last 24 hours): Temp Pulse Resp BP Pulse Ox 97.3 F L 60 20 123/66 100 02/23/17 08:39 02/23/17 08:39 02/23/17 08:39 02/23/17 08:39 02/23/17 08:39 - Medications Medications: Current Medications Aspirin (Ecotrin) 81 mg PO DAILY [facility] Last Admin: 02/23/17 08:16 Dose: 81 mg Atorvastatin Calcium (Lipitor) 20 mg PO HS [facility] Last Admin: 02/22/17 21:12 Dose: 20 mg Docusate Sodium (Colace) 100 mg PO BID [facility] Last Admin: 02/23/17 08:15 Dose: 100 mg Enoxaparin Sodium (Lovenox) 30 mg SC DAILY [facility] PRN Reason: Protocol Last Admin: 02/23/17 08:17 Dose: 30 mg Ergocalciferol (Drisdol 50,000 Intl Units Cap) 1 cap PO QWK [facility] Escitalopram Oxalate (Lexapro) 10 mg PO DAILY [facility] Last Admin: 02/23/17 08:16 Dose: 10 mg Folic Acid (Folic Acid) 1 mg PO DAILY [facility] Last Admin: 02/23/17 08:16 Dose: 1 mg Furosemide (Lasix) 20 mg IVP DAILY [facility] Last Admin: 02/23/17 08:16 Dose: 20 mg Insulin Human Regular (Humulin R) 0 units SC [facility] PRN Reason: Protocol Last Admin: 02/23/17 11:38 Dose: Not Given Levothyroxine Sodium (Synthroid) 125 mcg PO DAILY@0630 [facility] Last Admin: 02/23/17 07:01 Dose: 125 mcg Lisinopril (Zestril) 5 mg PO DAILY [facility] Last Admin: 02/23/17 08:16 Dose: 5 mg Metoprolol Succinate (Toprol Xl) 50 mg PO DAILY [facility] Last Admin: 02/23/17 08:16 Dose: 50 mg Moxifloxacin HCl (Avelox) 400 mg PO DAILY [facility] Last Admin: 12/21/17 08:16 Dose: 400 mg Mupirocin (Bactroban Ointment) 1 applic TOP Q12 [facility] Last Admin: 02/23/17 08:15 Dose: 1 applic Repaglinide (Prandin) 1 mg PO TIDAC [facility] Last Admin: 02/23/17 11:38 Dose: 1 mg Spironolactone (Aldactone) 25 mg PO DAILY [facility] Last Admin: 02/23/17 08:16 Dose: 25 mg Tiotropium [place] (Spiriva) 18 mcg INH DAILY@1600 [facility] Last Admin: 02/22/17 16:19 Dose: 18 mcg - Labs Labs: 02/17/17 05:45 02/22/17 06:15 - Additional Findings Additional findings: Physical exam: Constitutional- Non toxic, NAD, lethargic, confused, chronically ill. Demented. Head- NCAT, PERRL Eye- PERRL, normal accommodation ENT- normal exam, MMM. Neck- normal inspection, supple, no JVD Respiratory- CTAB, no wheezes rales rhonchi Cardiovascular- RRR, +S1, +S2 no MRG GI/Abdominal- normal bowel sounds, soft, no mass, no hsm Skin- warm, dry Extremities Exam- normal capillary refill, normal inspection + Pedal edema bilaterally Neurological Exam- alert, stable gait Psych- normal mood, normal affect Assessment and Plan - Assessment and Plan (Free Text) Plan: Assessment: 86 y/o male woith PMH COPD , CKD,DDM , nephropathy , CAD s/p bypass , s/p AICD pacement , history RLE DVT presented with with SOB, dyspenea, elevated of D-Dimer,LE. He was admitted and treated for COPD exacerbation , possible pneumonia (abnormal CXR) requiring constant administration of O2 and IV antibiotics . Patient has history of depression, no compliance with meds.Patient transfered to snf to continue present rx and PT. 1. Debility / Deconditioning Admitted to TCU PT/Ot consult- doing well with both 2.COPD exacerbation -improved Continue O2 via [place] Duonebs, Spiriva 3. Suspected Pneumonia on Avelox PO since 02/16. 4. CAD s/p CABG / dyslipidemia / AAA/ cardiology consulted Continue BP control On Statin , ASa,BB. ACEI 5. CKD stage III Nephro consulted stable 6.Hypertension on Lisinopril,metoprolol, Spironolactone 7. DM endo on cosult continue Accuchek, diabetic diert, insulin coverage Prandin 8. Hypothyroidism on synthroid 9. DVT prophylaxis Lovenox 10 . Depression on lexapro
[2017-02-23] MEDS: Tiotropium 18 mcg Cap For Inhalation INH SCH (16:30)
--- NOTE | 2017-02-23 18:27 | PN ---
LOCATION: Room 709. SUBJECTIVE: This is an 86-year-old male with recent uncontrolled type 2 diabetes, now being followed closely for metabolic management. He presented with congestive heart failure to the hospital initially and since then improved clinically and hemodynamically as noted thereof. His latest chemistries showed a BUN of 58, sodium 142, potassium 5.1, chloride 110, CO2 of 26, glucose 113, and . His albumin level is 2.9 and the latest thyroid studies showed a T4 of 9.82 with a free T4 of 1.63 and a TSH of 0.86. So, at this time, we will continue the low dose correction scale using regular insulin as ordered. We will also continue the low dose oral hypoglycemic drug therapy as given with Prandin given as 1 mg p.o. t.i.d. before meals as ordered. We will titrate incrementally as indicated to optimize metabolic control. We will also follow his renal function because of progressive renal insufficiency and advanced azotemia as noted thereof. We will obtain serial chemistries and supplement accordingly as needed. We will follow. Lenore Dennis MD
[2017-02-23 19:59] VITALS: O2SAT 99
[2017-02-24] MEDS: Levothyroxine 125 MCG TAB PO SCH (06:59)
[2017-02-24] MEDS: Insulin Regular 100 units/ml SC SCH (07:05)
[2017-02-24 07:13] LABS: T4 7.91 ug/dl (5.5-11.0)
[2017-02-24 07:27] LABS: THYROID STIMULATING HORMONE 0.5 mIU/ML (0.46-4.68)
[2017-02-24 07:40] LABS: ALB/GLOB RATIO 0.9 (1.0-2.1); BILIRUBIN,TOTAL 0.4 mg/dl (0.2-1.3); CALCIUM 8.1 mg/dL (8.4-10.2); POTASSIUM 5.3 MMOL/L (3.6-5.0); TOTAL PROTEIN 5.9 G/DL (6.3-8.2)
[2017-02-24 08:04] VITALS: TEMP 96.8
[2017-02-24] MEDS ORDERED: Sod Polystyrene Sulf 15 gm/60 ml Susp PO ONE (08:25)
[2017-02-24] MEDS: Enoxaparin 30 mg Syringe SC SCH (08:58)
[2017-02-24 09:00] VITALS: PULSE 18
[2017-02-24] MEDS: Tiotropium 18 mcg Cap For Inhalation INH SCH (09:00)
[2017-02-24] MEDS: Metoprolol Succinate 50 mg XL Tab PO SCH (09:02)
[2017-02-24 09:04] VITALS: BP 110/50
--- NOTE | 2017-02-24 14:44 | PN ---
ENDOCRINOLOGY FOLLOWUP NOTE LOCATION: In room #709. This is an 86-year-old male with recent uncontrolled type 2 diabetes, presenting here with congestive heart failure and has improved clinically and hemodynamically as noted thereof. His glycemic levels are much improved at this time and the latest chemistries showed a BUN of 53, sodium 138, potassium 5.3, chloride 108, CO2 of 28, glucose 162 and creatinine 3.1. His glucose levels have ranged from 139-254 mg/dL. So at this time, we will continue the same oral hypoglycemic therapy given as Prandin as 1 mg p.o. t.i.d. before meals as ordered. He will follow with his primary physician, . for outpatient metabolic and medical management, especially in the light of progressive renal insufficiency with underlying chronic kidney disease. We will follow. Lenore Dennis MD
--- NOTE | 2017-02-24 18:21 | CP.PCM.DIS ---
Provider - Provider Date of Admission: 02/16/17 15:35 Attending physician: Kit Covington MD Primary care physician: Dr. Covington- PMD Consults: Dr. Poe- nephrology Dr. Jennings- cardiology Time Spent in preparation of Discharge (in minutes): 25 Hospital Course - Lab Results Lab Results: Most Recent Lab Values WBC 7.0 K/uL (4.8-10.8) D 02/17/17 05:45 RBC 3.97 Mil/uL (4.40-5.90) L 02/17/17 05:45 Hgb 11.0 g/dL (12.0-18.0) L 02/17/17 05:45 Hct 34.7 % (35.0-51.0) L 02/17/17 05:45 MCV 87.4 fl (80.0-94.0) D 02/17/17 05:45 MCH 27.6 pg (27.0-31.0) 02/17/17 05:45 MCHC 31.6 g/dL (33.0-37.0) L 02/17/17 05:45 RDW 15.8 % (11.5-14.5) H 02/17/17 05:45 Plt Count 105 K/uL (130-400) L D 02/17/17 05:45 Sodium 138 mmol/l (132-148) 02/24/17 05:45 Potassium 5.3 MMOL/L (3.6-5.0) H 02/24/17 05:45 Chloride 108 mmol/L (98-107) H 02/24/17 05:45 Carbon Dioxide 28 mmol/L (22-30) 02/24/17 05:45 Anion Gap 7 (10-20) L 02/24/17 05:45 BUN 53 mg/dl (9-20) H 02/24/17 05:45 Creatinine 3.1 mg/dl (0.8-1.5) H 02/24/17 05:45 Est GFR ( Amer) 23 02/24/17 05:45 Est GFR (Non-Af Amer) 19 02/24/17 05:45 POC Glucose (mg/dL) 139 mg/dL (65-110) H 02/24/17 07:17 Random Glucose 162 mg/dL (75-110) H 02/24/17 05:45 Hemoglobin A1c 6.8 % (4.2-6.5) H 02/17/17 05:45 Calcium 8.1 mg/dL (8.4-10.2) L 02/24/17 05:45 Total Bilirubin 0.4 mg/dl (0.2-1.3) 02/24/17 05:45 AST 17 U/L (17-59) 02/24/17 05:45 ALT 28 U/L (21-72) 02/24/17 05:45 Alkaline Phosphatase 65 U/L (38-126) 02/24/17 05:45 NT-Pro-B Natriuret Pep 61055 pg/ml (0-900) H 02/17/17 05:45 Total Protein 5.9 G/DL (6.3-8.2) L 02/24/17 05:45 Albumin 2.8 g/dL (3.5-5.0) L 02/24/17 05:45 Globulin 3.2 gm/dL (2.2-3.9) 02/24/17 05:45 Albumin/Globulin Ratio 0.9 (1.0-2.1) L 02/24/17 05:45 Free T4 1.37 ng/dL (0.78-2.19) 02/24/17 05:45 Thyroxine (T4) 7.91 ug/dl (5.5-11.0) 02/24/17 05:45 TSH 3rd Generation 0.50 mIU/ML (0.46-4.68) 02/24/17 05:45 - Hospital Course Hospital Course: 86 y/o male woith PMH COPD , CKD,DDM , nephropathy , CAD s/p bypass , s/p AICD pacement , history RLE DVT presented with with SOB, dyspenea, elevated of D-Dimer,LE. He was admitted as inpatient on 02/2017 and treated for COPD exacerbation , possible pneumonia (abnormal CXR) requiring constant administration of O2 and IV antibiotics. On 02/16 he was discharged to TCU after stabilization as inpatient. He underwent an uncomplicated stay while in the transitional care unit. Hecontinued to recieve abx and PT/OT and his condition improved. He is now discharged home today in stable condition and is to f/u with cardiology and his pmd, Dr. Covington, as well as Dr. Dennis (endocrinology). 1. Deconditioning- improved Discharge from TCU today PT/Ot consult- doing well with both 2.COPD exacerbation -improved Continue O2 via [place] Duonebs, Spiriva 3. Suspected Pneumonia- resolved on Avelox PO since 02/16; finished course 4. CAD s/p CABG / dyslipidemia / AAA/ cardiology consulted Continue BP control On Statin , ASa,BB. ACEI as outpatient 5. CKD stage III Nephro consulted stable 6.Hypertension on Lisinopril,metoprolol, Spironolactone 7. DM continue Accuchek, diabetic diet, insulin coverage Prandin 8. Hypothyroidism on synthroid 9 . Depression on lexapro 10. Hyperkalemia- mild - Once dose of Kayexelate 15 gm was given before discharge Discharge Exam - Additional Findings Additional findings: Physical exam: Constitutional- cooperative, awake, alert. Head- NCAT, PERRL Eye- PERRL, normal accommodation ENT- normal exam, MMM. Neck- normal inspection, supple, no JVD Respiratory- CTAB, no wheezes rales rhonchi Cardiovascular- RRR, +S1, +S2 no MRG GI/Abdominal- normal bowel sounds, soft, no mass, no hsm Skin- warm, dry Extremities Exam- normal capillary refill, normal inspection Neurological Exam- alert, stable gait Psych- normal mood, normal affect Discharge Plan - Discharge Medications Prescriptions: Aspirin [Ecotrin] 81 mg PO DAILY #30 tabec Docusate [Colace] 100 mg PO BID #60 cap Ergocalciferol (Vitamin D2) [Vitamin D2] 1 tab PO QWK #5 capsule Escitalopram [Lexapro] 10 mg PO DAILY #30 tab Folic Acid 1 mg PO DAILY #30 tab Furosemide [Lasix] 20 mg PO DAILY #30 udc Levothyroxine [Synthroid] 175 mcg PO DAILY@0630 #30 tab Lisinopril [Zestril] 5 mg PO DAILY #30 tab Metoprolol Succinate [Toprol XL] 50 mg PO DAILY #30 tab Mupirocin 2% Ointment [Bactroban Ointment] 1 applic TOP Q12 #1 tube Repaglinide [Prandin] 1 mg PO TIDAC 90 Days tab Rosuvastatin Calcium [Crestor] 10 mg PO HS #30 tab Spironolactone [Aldactone] 25 mg PO DAILY #30 tab Tiotropium [Spiriva] 18 mcg INH RQ24 #30 cap - Follow Up Plan Condition: FAIR Disposition: HOME/ ROUTINE Instructions: Heart Failure (DC), Fluid Restriction (DC) Referrals: Lenore Dennis MD [Medical Doctor] - Kit Covington MD [Family Provider] -
== END 2017-02-24 10:45 | disposition home or self-care (01) | DRG 945 ==
LOC: H.TCU 15:35
PROVIDERS: ADMIT Internal Medicine; ATTEND Internal Medicine
PROC: F07Z9FZ Gait Training/Functional Ambulation Treatment using Assistive, Adaptive, Supportive or Protective Equipment (ICD-10-PCS; principal; 2017-02-16)
PROC: F07L6FZ Therapeutic Exercise Treatment of Musculoskeletal System - Lower Back / Lower Extremity using Assistive, Adaptive, Supportive or Protective Equipment (ICD-10-PCS; 2017-02-16)
PROC: F08Z1FZ Dressing Techniques Treatment using Assistive, Adaptive, Supportive or Protective Equipment (ICD-10-PCS; 2017-02-16)
DX: R53.81 Other malaise (principal); J18.9 Pneumonia, unspecified organism; E11.21 Type 2 diabetes mellitus with diabetic nephropathy; I13.0 Hypertensive heart and chronic kidney disease with heart failure and stage 1 through stage 4 chronic kidney disease, or unspecified chronic kidney disease; E11.319 Type 2 diabetes mellitus with unspecified diabetic retinopathy without macular edema; E11.42 Type 2 diabetes mellitus with diabetic polyneuropathy; E11.65 Type 2 diabetes mellitus with hyperglycemia; I50.9 Heart failure, unspecified; J44.0 Chronic obstructive pulmonary disease with (acute) lower respiratory infection; J44.1 Chronic obstructive pulmonary disease with (acute) exacerbation; N18.3 Chronic kidney disease, stage 3 (moderate); E11.22 Type 2 diabetes mellitus with diabetic chronic kidney disease; D63.1 Anemia in chronic kidney disease; I25.5 Ischemic cardiomyopathy; E03.9 Hypothyroidism, unspecified; Z88.0 Allergy status to penicillin; E66.9 Obesity, unspecified; Z68.30 Body mass index [BMI] 30.0-30.9, adult; Z91.14 Patient's other noncompliance with medication regimen; I71.4 Abdominal aortic aneurysm, without rupture; I25.10 Atherosclerotic heart disease of native coronary artery without angina pectoris; G47.30 Sleep apnea, unspecified; Z95.1 Presence of aortocoronary bypass graft; Z95.810 Presence of automatic (implantable) cardiac defibrillator; Z86.718 Personal history of other venous thrombosis and embolism; F32.9 Major depressive disorder, single episode, unspecified; E87.5 Hyperkalemia; E78.00 Pure hypercholesterolemia, unspecified; E78.5 Hyperlipidemia, unspecified; Z87.891 Personal history of nicotine dependence